=== PATIENT | female | born 1985 | race Caucasian/White ===

== ENCOUNTER 2025-01-29 17:12 | Emergency (ER) | payer OTHER, SELFPAY ==
[2025-01-29 17:18] VITALS: BP 130/76
[2025-01-29 17:44] LABS: HCG, Urine Qualitative Screen Negative
[2025-01-29 17:45] LABS: Hematocrit 39.7 % (37.0-47.0); Hemoglobin 13.6 g/dL (12.0-16.0); Mean Corp Hgb Conc. 34.3 g/dL (33.0-37.0); Mean Corpuscular Volume 88.6 fL (81.0-99.0); Nucleated Red Blood Cells % 0 %; Platelet Count 195 10^3/uL (130-400); Red Cell Dist. Width 11.9 % (11.5-14.5)
[2025-01-29 17:57] LABS: Urine Character Cloudy (Clear)
[2025-01-29 18:00] LABS: ALT (SGPT) 25 U/L (0-35); AST (SGOT) 24 U/L (14-36); Albumin 4.7 g/dl (3.5-5.0); Alkaline Phosphatase 56 U/L (38-126); Blood Urea Nitrogen 13 mg/dl (7-17); Calcium 9.5 mg/dl (8.4-10.2); Carbon Dioxide 28 mmol/L (22-30); Chloride 106 mmol/L (98-107); Glucose 87 mg/dl (70-99); Potassium 4.1 mmol/L (3.5-5.1); Sodium 138 mmol/L (135-145); Total Protein 7.2 g/dl (6.3-8.2); eGFR > 60.00
[2025-01-29 18:36] LABS: Urine Red Blood Cell >100 /HPF (0-2); Urine White Cell >100 /HPF (0-5)
--- NOTE | 2025-01-29 19:16 | ED.GENMED ---
History of Present Illness
General
Chief Complaint: Urinary Symptoms
Source: patient
Exam Limitations: none
Time Seen by Provider: 01/29/25 19:16
Nursing documentation reviewed up to this point in time: agreed with
History of Present Illness
History of Present Illness:
39 yo female with no clinically significant PMHX presents for right flank and abdominal pain, bloating, frequency to urinate and blood in urine since yesterday. She denies fever or chills and notes a temperature of 99�F this morning. Denies pain at
this time. [place] nauseous last night and this morning but not now. Has not vomited
Past History
Past History
ED Past Medical History: None
ED Past Surgical History: Cardiac (Ablation for WPW) and
Social History
Tobacco: Smoker
Alcohol: Occasional
Drug: None
Personal:
Employment: Employed
Review of Systems
Review of Systems
Allergies reviewed?: Yes
All Other Systems: ROS reviewed and negative except as documented in HPI and ROS
Musculoskeletal: Reports other (generalized joint pain, particularly in the hands, shoulders, hips, and back, persisting for years. She has been evaluated by a circus performer and has undergone physical therapy. There is a mention of possible
hypermobility disorder. )
Phy Exam
Physical Exam
Physical Exam:
GENERAL: No acute distress. A&Ox3.
CONSTITUTIONAL: Afebrile.
EYES: clear, conjunctivae normal
ENMT: moist mucus membranes
RESPIRATORY: Regular respirations, nonlabored, lungs clear.
CARDIOVASCULAR: Regular rate and rhythm, no murmurs, no rubs.
GI: Soft, nontender, normal BS, no flank tenderness
MUSCULOSKELETAL: Moves with ease. Well perfused.
SKIN: Warm, dry, pink
PSYCH: Normal mood and affect. Well kept, interactive and appropriate
NEUROLOGIC: Awake, alert and oriented. No focal neurological deficits
Course
Orders/Labs/Results
Orders:
Orders
01/29/25 17:21
Test Result ONCE
01/29/25 17:32
Complete Blood Count/With Diff Urgent
Comprehensive Metabolic Panel Urgent
Urinalysis Reflex To Culture Urgent
Date Specimen was Collected: 01/29/25
Time Specimen was Collected: 17:21
Urine Microscopic Reflex Cult Urgent
Urine,Hcg qualitative screen [HCG, Urine Qualitative Screen] Urgent
Date Specimen was Collected: 01/29/25
Time Specimen was Collected: 17:21
Urine Culture Urgent
MARGO Source: U
Specimen Description:
Date Specimen was Collected: 01/29/25
Time Specimen was Collected: 17:21
01/29/25 19:30
CT Abd/pel Without Iv Or Oral Urgent
Comment:
Reason For Exam: R flank pain, hematuria
01/29/25 21:27
Nitrofurantoin Monohydrate [Macrobid] 100 mg PO NOW STA
Abnormal Lab Results
01/29/25
17:32
Absolute Neuts (auto) 6.7 H 10^3/uL
(1.4-6.5)
Lymphocytes % 16.8 L %
(20.5-51.1)
Urine Ketones 1+ A
(Negative)
Ur Occult Blood Reflex 4+ A
(Negative)
Urine Nitrite (Reflex) Positive A
(Negative)
Leukocyte Esterase Rfl 3+ A
(Negative)
Urine RBC >100 A /HPF
(0-2)
Urine WBC (Reflex) >100 A /HPF
(0-5)
Urine Bacteria (Reflex) Moderate A
(Negative)
Urine Albumin (Reflex) 3+ A
(Neg - Trace)
01/29/25 17:32
01/29/25 17:32
Vital Signs
Initial and Last Documented VS:
Initial Vital Signs
Temp Pulse Resp BP Pulse Ox
98.5 F 98 18 130/76 98
01/29/25 17:18 01/29/25 17:18 01/29/25 17:18 01/29/25 17:18 01/29/25 17:18
Last Documented Vital Signs
Temp Pulse Resp BP Pulse Ox
98.5 F 100 18 119/52 99
01/29/25 17:18 01/29/25 20:28 01/29/25 20:28 01/29/25 21:00 01/29/25 21:45
MDM/Problems Addressed
Differential Diagnosis Includes:
Kidney stone, UTI, pyelonephritis
MDM/Problems Addressed:
39 yo female with no clinically significant PMHX presents for right flank and abdominal pain, bloating, frequency to urinate and blood in urine since yesterday. She denies fever or chills and notes a temperature of 99�F this morning. Denies pain at
this time. [place] nauseous last night and this morning but not now. Has not vomited
Temp 28.5, NAD
CBC normal CMP normal
UA: Positive nitrites, plus for occult blood, greater than 100 RBCs, greater than 100 WBCs, moderate bacteria, 3+ albumin
9:30 p.m.
CAT scan abdomen pelvis radiology report reviewed: IMPRESSION:
1. Suspect acute cystitis. No other significant acute abnormality identified in the abdomen or pelvis, within the limits of unenhanced CT, as described above.
Plan: Nitrofurantoin and follow-up with PCP
*Pulse Oximetry
SaO2: 98
Oxygen Mode of Delivery: Room air
Patient hypoxic: not evaluated
*Critical Care Note
Total Time (30-74mins, 75-104mins- exclusive of procedures): Not Applicable
ED Attending Note
-
Portions of this chart may have been created with voice recognition software.� Occasional wrong word or��sound alike� substitutions may have occurred due to the inherent limitations of voice recognition software.
Discharge Plan
Departure
Patient Disposition: Home (Routine Discharge)
Date of Disposition: 01/29/25
Time of Disposition: 21:28
Patient with high blood pressure during this ER visit?: No
Condition: Good
Discharge Problem:
Acute hemorrhagic cystitis
Instructions: Urinary Tract Infection, Adult (DC), Blood in the Urine (Hematuria), Adult (DC)
Prescriptions:
New
nitrofurantoin macrocrystal 100 mg capsule
100 mg PO BID 7 Days Qty: 14 0RF
No Action
oxycodone-acetaminophen 5 MG/325 MG tablet
1 - 2 tab PO Q6HPRN PRN (Reason: pain) Qty: 20 0RF
Referrals:
Shemar Leong DO [Family Provider, Family Practice] - Call in 1-3 days for appt
Activity Restrictions/Additional Instructions:
As we discussed, I sent a prescription to your pharmacy for the antibiotic for your urinary tract infection.
Start it tomorrow as you were given a dose here tonight.
Drink plenty of fluids
Interventions
Interventions:
*Risk Screen - Suicide Last Done: 01/29/25 17:18
*General Assessment Last Done: 01/29/25 17:18
*Neglect/Abuse Screening Last Done: 01/29/25 17:18
*ED- Fall Risk Assessment Last Done: 01/29/25 17:18
*ED COVID-19 Vaccine History Last Done: 01/29/25 17:18
*Nursing Disposition Last Done: 01/29/25 21:58
ED-Female Genitourinary Assessment Last Done: 01/29/25 20:25
Discharge Date and Time
Discharge Date/Time: 01/29/25 21:59
Print Language: MONGOLIAN
[2025-01-29 20:25] VITALS: BMI 22.5
[2025-01-29 20:28] VITALS: BP 123/83
[2025-01-29 21:00] VITALS: BP 119/52
[2025-01-29] MEDS: MACROBID 100 MG PO (21:46)
== END 2025-01-29 21:59 | disposition home or self-care (01) ==
LOC: EMR 17:12
PROVIDERS: EMERGENCY PHYSICIAN Emergency Medicine; FAMILY PHYSICIAN Family Medicine
DX: N30.00 Acute cystitis without hematuria (principal); B96.20 Unspecified Escherichia coli [E. coli] as the cause of diseases classified elsewhere; F17.200 Nicotine dependence, unspecified, uncomplicated
CPT/HCPCS: 99284; 74176; 80053; 81003; 81015; 81025; 85025; 87077; 87086; 87186